=== PATIENT | male | born 1945 | race Caucasian/White ===

== ENCOUNTER 2025-03-05 12:21 | Outpatient (CLI) | payer MEDICARE | END 2025-03-05 12:22 | disposition home or self-care (01) | LOC: CSHRAD 12:21 | PROVIDERS: ATTEND Internal Medicine Gastroenterology | DX: R19.8 Other specified symptoms and signs involving the digestive system and abdomen (principal); Q43.8 Other specified congenital malformations of intestine | CPT/HCPCS: 74280 ==